=== PATIENT | female | born 1960 | race Caucasian/White ===

== ENCOUNTER 2017-03-17 08:13 | Inpatient (IN) ==
[2017-03-17] MEDS ORDERED: ALBUTEROL/IPRATROPIUM 3 ML NEB RESP TX STA (09:07)
[2017-03-17] MEDS ORDERED: methylPREDNISolone SOD SUC 125 MG/2 ML VIAL IV STA (09:07)
--- NOTE | 2017-03-17 09:10 | XRay Report ---
Portable chest March 17, 2017 Indication shortness of breath Comparison images dated January 05, 2016 Findings: Heart size is normal. Coarsened perihilar interstitial pattern predominantly involving the lower lobes. No effusions. No acute osseous abnormalities. Impression: Perihilar and lower lobe interstitial opacities. Differential considerations include underlying inflammatory/infectious process versus noncardiac interstitial edema. PROCEDURE INTERPRETED AT [facility] DEPARTMENT OF RADIOLOGY Final Report Signed by: Oliverio Almodovar
[2017-03-17] MEDS ORDERED: methylPREDNISolone SOD SUC 125 MG/2 ML VIAL ONE (09:16)
[2017-03-17 09:25] LABS: Basophils % 0.2 % (0.0-0.8); Eosinophils # 0.1 10*3/uL (0.0-0.87); Eosinophils % 0.4 % (0.00-10.9); Hematocrit 36.9 VOL% (35.7-47.0); Hemoglobin 12.7 GM/DL (12.0-16.0); Immature Granulocytes % 0.6 %; Immature Granulocytes Absolute 0.11 #; Lymphocytes # 1.3 10*3/uL (1.4-4.0); Lymphocytes % 7.5 % (21.3-54.2); Mean Corpuscular HGB Conc 34.4 GM/DL (32-36); Mean Corpuscular Hemoglobin 32 PG (27-34); Mean Corpuscular Volume 93.2 FL (87-102); Mean Platelet Volume 9.8 FL (9.6-12.0); Monocytes # 0.6 10*3/uL (0.11-0.8); Monocytes % 3.3 % (1.7-12.7); Neutrophils # 15.4 10*3/uL (1.4-7.4); Platelet Count 327 T/CUMM (130-400); Red Blood Count 3.96 MC/CUMM (3.8-5.5); White Blood Count 17.5 T/CUMM (4-12)
[2017-03-17 10:03] LABS: Blood Urea Nitrogen 15 MG/DL (7-18); Calcium 8.8 MG/DL (8.5-10.1); Glucose 105 MG/DL (74-106); Osmolality,Calculated 268.2 MOS/KG (273-304); Potassium 4.7 MMOL/L (3.5-5.1); Sodium 134 MMOL/L (136-145); Troponin I Only < 0.015 NG/ML (0.00-0.045)
--- NOTE | 2017-03-17 11:20 | Emergency Department Note ---
Jose Maria Lal Brooke, am scribing for, and in the presence of, Johnathan Crespo MD 08:44. Zak Lal Sunil, MD, personally performed the services described in this documentation, ascribed by Bianca Moise in my presence, and it is both accurate and complete 935 . Arrival - Arrival Chief Complaint: Upper Respiratory Stated Complaint: cough chest/throat pain,SOB ED Nursing Triage Note: C/o cough, runny nose, congestion, sore throat, and chest wall pain with coughing-onset two days ago. Denies fever. Mode of Arrival: Wheelchair Limitations: No Limitations Source: Patient, RN Notes Reviewed Time Seen by Provider: 03/17/17 08:35 - History of Present Illness HPI Narrative: Patient is a 56 year old female who presents to the ED with c/o shortness of breath and cough that started two days ago. Patient says she is having a hard time catching her breathe. She says her chest and throat are sore from coughing so much. Patient denies having any fever. She does not have home oxygen but says she "needs it." Patient has PMHx of HTN, afib, and COPD. Patient quit smoking two years ago. Her Primary Care Provider is Dr. Alison Rodgers. Onset (ago): day(s) (2) Date of Last Menstrual Period: menopause Allergies/Adverse Reactions: Allergies Allergy/AdvReac Type Severity Reaction Status Date / Time No Known Allergies Allergy Verified 07/09/15 16:06 Home Medications: Home Medications Medication Instructions Recorded Confirmed Type Fluoxetine HCl [Prozac] 40 mg PO QAM 12/22/15 03/17/17 History Hydrocodone/Acetaminophen 1 each PO BID 12/22/15 03/17/17 History [Hydrocodon-Acetaminophn 10-325] Multivit-Min/FA/Lycopen/Lutein 1 each PO DAILY 12/22/15 03/17/17 History [Centrum Silver Tablet] Bisoprolol [Zebeta] 5 mg PO BID #60 tablet 01/07/16 03/17/17 Rx Albuterol Inhaler [Proventil 2 puff INH Q6H PRN 03/17/17 03/17/17 History Inhaler] Albuterol Neb [Proventil Neb] 2.5 mg RESP TX Q4H PRN 03/17/17 03/17/17 History Amiodarone Tab [Cordarone Tab] 200 mg PO BEDTIME 03/17/17 03/17/17 History Azithromycin [Azithromycin Z Pack] 250 mg PO DIRECTED #6 tablet 03/17/17 Rx Lisinopril/Hydrochlorothiazide 1 each PO QAM 03/17/17 03/17/17 History [Lisinopril-Hctz 20-25 mg Tab] predniSONE TAB [PredniSONE] 10 mg PO DAILY #5 tablet 03/17/17 Rx Review of System - Review of System 12 point system: reviewed and no additional remarkable complaints except as stated - Review of System Constitutional: Absent: fever Head/Ears/Nose/Throat: Present: sore throat (sore from coughing) Respiratory: Present: cough, respiratory distress (short of breath) Cardiovascular: Present: chest pain (sore from coughing) Skin: Absent: rash Medical,Surgical,& Family Hx - Medical History Cardio: History of: Cardiac Dysrhythmia (AFIB), Hypertension Respiratory: History of: COPD - Social History Smoking Status: Former smoker Frequency of Alcohol Use: None Type of Drug Use: None Exam Vital Signs: Vital Signs Temperature 96.9 F L 03/17/17 08:19 Pulse Rate 85 03/17/17 09:35 Respiratory Rate 20 03/17/17 09:35 Blood Pressure 170/129 03/17/17 08:19 O2 Sat by Pulse Oximetry 96 03/17/17 09:35 - General General appearance: alert, in no apparent distress - Head Head exam: Present: atraumatic, normocephalic - Eye Eye exam: Present: normal appearance, PERRL, EOMI - ENT ENT exam: Present: normal exam - Neck Neck exam: Present: normal inspection - Chest Chest inspection: Present: normal inspection, symmetric chest wall rise - Respiratory Respiratory exam: Present: accessory muscle use, respiratory distress (mild to moderate- can speak full sentences. O2 Sat 85-86 w/o oxygen and 93-94 with oxygen), wheezes (diffuse) - Cardiovascular Cardiovascular exam: Present: regular rate, normal rhythm, normal heart sounds - Abdominal Exam Abdominal exam: Present: soft, normal bowel sounds. Absent: distention, tenderness - Extremities Exam Extremities exam: Present: normal inspection - Back Exam Back exam: Present: normal inspection - Neurological Exam Neurological exam: Present: alert, oriented X3 - Psychiatric Psychiatric exam: Present: normal affect, normal mood - Skin Skin exam: Present: warm, dry, intact, normal color Results - Labs CBC & BMP: 03/17/17 09:07 03/17/17 09:07 Lab Results: I have reviewed the patients labs Labs: Laboratory Tests 03/17/17 09:07 WBC 17.5 H RBC 3.96 Hgb 12.7 Hct 36.9 MCV 93.2 MCH 32 MCHC 34.4 RDW 13.0 Plt Count 327 MPV 9.8 Neut % (Auto) 88.0 H Lymph % (Auto) 7.5 L [place] % (Auto) 3.3 Eos % (Auto) 0.4 Baso % (Auto) 0.2 Neut # (Auto) 15.4 H Lymph # (Auto) 1.3 L [place] # (Auto) 0.6 Eos # (Auto) 0.1 Baso # (Auto) 0.0 Immature Gran % 0.6 Nucleated RBC % 0.0 Immature Gran # 0.11 Nucleated RBCs # 0.00 Immature Plt Fraction 0.0 Laboratory Tests 03/17/17 09:07 Sodium 134 L Potassium 4.7 Chloride 102 Carbon Dioxide 25 Anion Gap 11.7 BUN 15 Creatinine 1.20 H GFR Calculation 59 BUN/Creatinine Ratio 12.00 Glucose 105 Calculated Osmolality 268.2 L Calcium 8.8 Total Creatine Kinase 79 CK-MB (CK-2) < 1.0 Troponin I < 0.015 - Impressions This patient's oxygen saturation drops to 84% on room air. Has a history of COPD does not smoke anymore. She has a COPD exacerbation chest x-ray does not show pneumonia but possibly congestive heart failure. I have talked to the hospitalist who would admit this patient - Diagnostic Findings Procedure: Chest x-ray: report reviewed by me (Perihilar and lower lobe interstitial opacities. Differential considerations include underlying inflammatory/infectious process versus noncardiac interstitial edema.) Disposition Clinical Impression: COPD exacerbation Clinical Impression: (Ruled Out): Sinusitis Case discussed with: patient Disposition: Still a Patient Prescriptions: Azithromycin [Azithromycin Z Pack] 250 mg PO DIRECTED #6 tablet predniSONE TAB [PredniSONE] 10 mg PO DAILY #5 tablet New Prescriptions: Rx's Medication Instructions Recorded Azithromycin [Azithromycin Z Pack] 250 mg PO DIRECTED #6 tablet 03/17/17 predniSONE TAB [PredniSONE] 10 mg PO DAILY #5 tablet 03/17/17
[2017-03-17] MEDS ORDERED: ONDANSETRON 4 MG/2 ML VIAL IV PRN (12:30)
[2017-03-17] MEDS ORDERED: ACETAMINOPHEN 325 MG TABLET PO PRN (12:30)
[2017-03-17] MEDS ORDERED: ALBUTEROL 2.5 MG/3 ML NEB RESP TX PRN (12:53)
--- NOTE | 2017-03-17 12:54 | Hospitalist History & Physical ---
Assessment and Plan (1) COPD exacerbation Status: Acute Assessment and plan: Admit to med surg. IVF. IV antibiotics. IV steroids. Breathing treatments scheduled and prn. Supplemental O2. Current Visit: No History of Present Illness Chief complaint: shortness of breath History of present illness: Ms. Baker is a 56 year old white female with a history of htn, afib, pneumonia, and COPD that presented to the ED with complaints of shortness of breath and cough that started 2 days ago. Pt. states that she is having difficulty breathing. She also reports chest pain associated with the cough. The cough is nonproductive. She denies any fever, chills, and night sweats. She also denies nausea, vomiting, and diarrhea. Pt. is a former smoker who quit 2 years ago. CXR in ED showed 'perihilar and lower lobe interstitial opacities'. Pt's case has been discussed with Dr. Rocha and the patient will be accepted on our service. Pt. will be admitted for further evaluation and treatment. Home Medications Medication Instructions Recorded Confirmed Type Fluoxetine HCl [Prozac] 40 mg PO QAM 12/22/15 03/17/17 History Hydrocodone/Acetaminophen 1 each PO BID 12/22/15 03/17/17 History [Hydrocodon-Acetaminophn 10-325] Multivit-Min/FA/Lycopen/Lutein 1 each PO DAILY 12/22/15 03/17/17 History [Centrum Silver Tablet] Bisoprolol [Zebeta] 5 mg PO BID #60 tablet 01/07/16 03/17/17 Rx Albuterol Inhaler [Proventil 2 puff INH Q6H PRN 03/17/17 03/17/17 History Inhaler] Albuterol Neb [Proventil Neb] 2.5 mg RESP TX Q4H PRN 03/17/17 03/17/17 History Amiodarone Tab [Cordarone Tab] 200 mg PO BEDTIME 03/17/17 03/17/17 History Azithromycin [Azithromycin Z Pack] 250 mg PO DIRECTED #6 tablet 03/17/17 Rx Lisinopril/Hydrochlorothiazide 1 each PO QAM 03/17/17 03/17/17 History [Lisinopril-Hctz 20-25 mg Tab] predniSONE TAB [PredniSONE] 10 mg PO DAILY #5 tablet 03/17/17 Rx Allergies Allergy/AdvReac Type Severity Reaction Status Date / Time No Known Allergies Allergy Verified 07/09/15 16:06 Medical,Surgical,& Family Hx - Medical History Cardio: History of: Cardiac Dysrhythmia (AFIB), Hypertension Respiratory: History of: COPD - Family History Family History: Reports;: Family Heart Disease - Social History Smoking Status: Former smoker Frequency of Alcohol Use: None Type of Drug Use: None Marital Status: Lives With:: Significant Other Functional capacity: uses cane/walker 12 point system: reviewed and no additional remarkable complaints except as stated - Constitutional Constitutional: Absent: chills, fever(s), night sweats - EENT Eyes: Absent: blurry vision Ears: Absent: decreased hearing Nose, mouth and throat: Absent: headache(s) - Cardiovascular Cardiovascular: Present: chest pain with activity (expiratory chest wall pain.) , dyspnea on exertion. Absent: edema - Respiratory Respiratory: Present: cough, dyspnea - Gastrointestinal Gastrointestinal: Absent: abdominal pain, nausea, vomiting - Genitourinary Genitourinary: Absent: difficulty urinating - Neurological Neurological: Absent: confusion, dizziness - Endocrine Endocrine: Present: polyuria Exam - Constitutional Vitals: Period Temp Pulse Resp BP Sys/Urena Pulse Ox Last 24 Hr 96.9 F-96.9 F 85-94 20-26 92-170/56-129 87-96 General appearance: mild distress - Head Head exam: Present: normal inspection, normocephalic - Eye Eye exam: Present: EOMI Pupils: Present: PARVIN - Neck Neck exam: Present: normal inspection - Respiratory Respiratory exam: Present: other (coarse). Absent: wheezes - Cardiovascular Cardiovascular exam: Present: regular rate and rhythm - GI/Abdominal GI/Abdominal exam: Present: normal bowel sounds, soft. Absent: tenderness - Extremities Exam Extremities exam: Present: normal capillary refill, full ROM. Absent: edema - Neurological Exam Neurological exam: Present: alert, oriented X3 - Psychiatric Psychiatric exam: Present: normal affect, normal mood - Skin Skin exam: Present: normal color, warm, dry Results - Labs CBC & BMP: 03/17/17 09:07 03/17/17 09:07 Lab Results: I have reviewed the past 24 hour labs
--- NOTE | 2017-03-17 13:21 | EKG Report ---
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
[2017-03-17] MEDS: SODIUM CHLORIDE 0.9% 1,000 ML IV SCH (13:27)
[2017-03-17] MEDS: ALBUTEROL/IPRATROPIUM 3 ML NEB RESP TX SCH ×3 (14:26→22:47)
[2017-03-17] MEDS: cefTRIAXone 2,000 MG in SODIUM CHLORIDE 0.9% 100 ML IV SCH (16:13)
[2017-03-17] MEDS: FUROSEMIDE 40 MG/4 ML VIAL IV SCH (16:13)
[2017-03-17] MEDS: methylPREDNISolone SOD SUC 40 MG/1 ML VIAL IV SCH (18:06)
[2017-03-17 19:18] LABS: Apearance,Urine Slightly Hazy (Clear); Bacteria,Urine Few /HPF (Few); Bilirubin,Urine Negative (Negative); Blood, Urine Negative (Negative); Glucose,Urine (UA) Negative (Negative); Ketones,Urine Negative (Negative); Nitrite,Urine Negative (Negative); Protein,Urine Negative; Squamous Epithelial Cell,Urine Occasional /HPF (0-10); Urine Color Yellow (Yellow); Urine Specific Gravity 1.009 (1.001-1.035); Urine Urobilinogen < 2.0 EU/DL (0.2-1.0)
[2017-03-17] MEDS: BISOPROLOL 5 MG TABLET PO SCH (21:27)
[2017-03-17] MEDS: ENOXAPARIN 40 MG/0.4 ML SYRINGE SUBCUT SCH (21:27)
[2017-03-17] MEDS: AMIODARONE 200 MG TABLET PO SCH (21:27)
[2017-03-17] MEDS: FLUTICASONE/SALMETEROL 250-50 DISKUS 14 DOSE INH SCH (21:27)
[2017-03-17] MEDS: DOXYCYCLINE HYCLATE 100 MG CAPSULE PO SCH (21:27)
[2017-03-18] MEDS: ALBUTEROL/IPRATROPIUM 3 ML NEB RESP TX SCH ×5 (02:33→19:31)
[2017-03-18] MEDS: methylPREDNISolone SOD SUC 40 MG/1 ML VIAL IV SCH ×3 (02:50→17:54)
[2017-03-18] MEDS: SODIUM CHLORIDE 0.9% 1,000 ML IV SCH ×2 (03:00→17:20)
[2017-03-18 03:33] LABS: Basophils % 0.1 % (0.0-0.8); Hematocrit 33.3 VOL% (35.7-47.0); Hemoglobin 11.3 GM/DL (12.0-16.0); Immature Granulocytes % 1.8 %; Immature Granulocytes Absolute 0.27 #; Lymphocytes # 0.5 10*3/uL (1.4-4.0); Lymphocytes % 3.2 % (21.3-54.2); Mean Corpuscular HGB Conc 33.9 GM/DL (32-36); Mean Corpuscular Hemoglobin 32 PG (27-34); Mean Corpuscular Volume 94.1 FL (87-102); Mean Platelet Volume 10.2 FL (9.6-12.0); Monocytes # 0.5 10*3/uL (0.11-0.8); Monocytes % 3.6 % (1.7-12.7); Neutrophils # 13.8 10*3/uL (1.4-7.4); Neutrophils % 91.3 % (38.7-73.9); Platelet Count 330 T/CUMM (130-400); Red Blood Count 3.54 MC/CUMM (3.8-5.5); Red Cell Distribution Width 13.2 % (9.3-17.3); White Blood Count 15.1 T/CUMM (4-12)
[2017-03-18 04:24] LABS: Calcium 8.6 MG/DL (8.5-10.1); Potassium 4.2 MMOL/L (3.5-5.1); Risk Ratio 4.1; Thyroid Stimulating Hormone 0.212 uIU/ml (0.358-3.74); VLDL CHOLESTEROL 16.6 MG/DL
[2017-03-18 05:16] LABS: Band Neutrophils 1 % (0-10); Eosinophils 1 % (0-10); Lymphocytes 2 % (20-55); Platelet Estimate Normal; Segmented Neutrophils 92 % (50-85); Total Cells Counted 100
[2017-03-18] MEDS: FUROSEMIDE 40 MG/4 ML VIAL IV SCH (09:51)
[2017-03-18] MEDS: FLUTICASONE/SALMETEROL 250-50 DISKUS 14 DOSE INH SCH ×2 (09:52→21:35)
[2017-03-18] MEDS: BISOPROLOL 5 MG TABLET PO SCH ×2 (09:53→21:35)
[2017-03-18] MEDS: FLUoxetine 20 MG CAPSULE PO SCH (09:53)
[2017-03-18] MEDS: CHOLECALCIFEROL 1,000 UNIT TABLET PO SCH (09:53)
[2017-03-18] MEDS: PANTOPRAZOLE 40 MG TABLET PO SCH (09:53)
[2017-03-18] MEDS: LISINOPRIL/HCTZ 20-25 MG TABLET PO SCH (09:53)
[2017-03-18] MEDS: DOXYCYCLINE HYCLATE 100 MG CAPSULE PO SCH ×2 (12:36→21:35)
[2017-03-18] MEDS: cefTRIAXone 2,000 MG in SODIUM CHLORIDE 0.9% 100 ML IV SCH (14:20)
[2017-03-18] MEDS ORDERED: CLOTRIMAZOLE 1% CREAM 15 GM TUBE TOP SCH (14:30)
--- NOTE | 2017-03-18 15:59 | Hospitalist Progress Note ---
Hospitalist: Subjective Interval history: 56 year old white female with a history of htn, afib, pneumonia, and COPD that presented to the ED with complaints of shortness of breath and cough that started 2 days ago. She was found to have pneumonia and CHF exacerbation, getting treatment for those, feeling better than yesterday. Exam - Constitutional Vitals: Period Temp Pulse Resp BP Sys/Urena Pulse Ox Last 24 Hr 97.0 F-98 F 75-92 16-20 111-118/53-59 91-99 Exam: General: No Acute Distress HEENT: Normocephalic, atraumatic, Extra ocular movements intact Neck: Few crackles bilaterally Chest: Clear to auscultation B/L CV: S1 + S2 audible without murmur, gallop or rub Abd: soft, NT, Non-distended, BS + Ext: No edema Skin: No purpura, bruising or rash Rheumatologic: No Joint deformities Neurologic: Strength 5/5 all extremities, no gross sensory deficits Results - Labs CBC & BMP: 03/18/17 02:45 03/18/17 02:45 - Impressions Assessment and Plan: Acute on chronic COPD exacerbation Status: Acute Assessment and plan: Continue IV steroids antibiotics and bronchodilators Current Visit: Yes Bacterial pneumonia Status: Acute Assessment and plan: Continue IV antibiotics. Repeat chest x-ray. Current Visit: Yes Acute on chronic diastolic congestive heart failure Status: Acute Assessment and plan: Continue IV Lasix Current Visit: Yes Paroxysmal atrial fibrillation Status: Chronic Assessment and plan: Continue home bisoprolol and amiodarone Current Visit: No
--- NOTE | 2017-03-18 17:09 | XRay Report ---
2 view chest March 18, 2017 extending 17 hours Indication: Shortness of breath Comparison: Previous day and 29 hours Findings: Cardiomediastinal contours are stable. No change in the perihilar interstitial and hazy alveolar opacities when compared with prior study. No acute osseous abnormalities. Visualized upper abdomen demonstrates no acute pathology. Impression: Stable perihilar interstitial opacities, likely inflammatory in etiology. PROCEDURE INTERPRETED AT [facility] DEPARTMENT OF RADIOLOGY Final Report Signed by: Oliverio Almodovar
[2017-03-18] MEDS: ENOXAPARIN 40 MG/0.4 ML SYRINGE SUBCUT SCH (21:34)
[2017-03-18] MEDS: AMIODARONE 200 MG TABLET PO SCH (21:35)
[2017-03-18] MEDS: MICONAZOLE 2% VAG CREAM 45 GM TUBE VAG SCH (21:35)
[2017-03-19] MEDS: ALBUTEROL/IPRATROPIUM 3 ML NEB RESP TX SCH ×6 (00:08→19:37)
[2017-03-19] MEDS: methylPREDNISolone SOD SUC 40 MG/1 ML VIAL IV SCH ×3 (01:21→18:01)
[2017-03-19 04:32] LABS: Basophils % 0.1 % (0.0-0.8); Hemoglobin 10.9 GM/DL (12.0-16.0); Immature Granulocytes Absolute 0.39 #; Lymphocytes # 0.6 10*3/uL (1.4-4.0); Lymphocytes % 3.1 % (21.3-54.2); Mean Corpuscular HGB Conc 34.1 GM/DL (32-36); Mean Corpuscular Hemoglobin 32 PG (27-34); Mean Corpuscular Volume 94.4 FL (87-102); Mean Platelet Volume 10.4 FL (9.6-12.0); Monocytes # 0.6 10*3/uL (0.11-0.8); Monocytes % 2.9 % (1.7-12.7); Neutrophils # 17.6 10*3/uL (1.4-7.4); Neutrophils % 91.9 % (38.7-73.9); Platelet Count 371 T/CUMM (130-400); Red Blood Count 3.39 MC/CUMM (3.8-5.5); Red Cell Distribution Width 13.3 % (9.3-17.3); White Blood Count 19.2 T/CUMM (4-12)
[2017-03-19 04:58] LABS: Calcium 8.5 MG/DL (8.5-10.1); Osmolality,Calculated 289.7 MOS/KG (273-304)
[2017-03-19 05:15] LABS: Band Neutrophils 1 % (0-10); Lymphocytes 4 % (20-55); Segmented Neutrophils 94 % (50-85); Total Cells Counted 100
[2017-03-19 05:16] LABS: Hypochromasia Slight; Microcytosis Slight
[2017-03-19] MEDS: SODIUM CHLORIDE 0.9% 1,000 ML IV SCH ×2 (06:23→19:43)
[2017-03-19] MEDS: LISINOPRIL/HCTZ 20-25 MG TABLET PO SCH (08:27)
[2017-03-19] MEDS: BISOPROLOL 5 MG TABLET PO SCH ×2 (08:27→21:23)
[2017-03-19] MEDS: DOXYCYCLINE HYCLATE 100 MG CAPSULE PO SCH ×2 (08:27→21:23)
[2017-03-19] MEDS: FLUoxetine 20 MG CAPSULE PO SCH (08:27)
[2017-03-19] MEDS: CHOLECALCIFEROL 1,000 UNIT TABLET PO SCH (08:27)
[2017-03-19] MEDS: PANTOPRAZOLE 40 MG TABLET PO SCH (08:28)
[2017-03-19] MEDS: FLUTICASONE/SALMETEROL 250-50 DISKUS 14 DOSE INH SCH ×2 (08:28→21:24)
[2017-03-19] MEDS: FUROSEMIDE 40 MG/4 ML VIAL IV SCH (08:29)
--- NOTE | 2017-03-19 11:19 | Hospitalist Progress Note ---
Assessment and Plan (1) CAP (community acquired pneumonia) Status: Acute Assessment and plan: The patient is improving slowly. We will continue with IV antibiotics for her pneumonia. The patient will be ready for discharge home likely on Sunday. Current Visit: No (2) COPD (chronic obstructive pulmonary disease) Status: Chronic Current Visit: No Qualifiers: COPD type: emphysema Emphysema type: centrilobular Qualified Code(s): J43.2 - Centrilobular emphysema Hospitalist: Subjective Interval history: 56 year old white female with a history of htn, afib, pneumonia, and COPD that presented to the ED with complaints of shortness of breath and cough that started 2 days prior to admission. The patient's shortness of breath is improving any she has less productive sputum. The patient is cooperative with respiratory therapies and has less wheezing than she did before admission. The patient be ready for discharge home but needs additional IV antibiotics to clear infection from the upper airways. The patient denies angina or abdominal pain. Exam - Constitutional Vitals: Period Temp Pulse Resp BP Sys/Urena Pulse Ox Last 24 Hr 96.7 F-98.4 F 75-90 16-22 105-130/54-71 83-99 General appearance: mild distress - Head Head exam: Present: normocephalic (The patient is warm to the touch and mildly diaphoretic) - Respiratory Respiratory exam: Present: prolonged expiratory phase Results - Labs CBC & BMP: 03/19/17 04:07 03/19/17 04:07 Lab Results: I have reviewed the past 24 hour labs
[2017-03-19] MEDS: cefTRIAXone 2,000 MG in SODIUM CHLORIDE 0.9% 100 ML IV SCH (17:02)
[2017-03-19] MEDS: AMIODARONE 200 MG TABLET PO SCH (21:23)
[2017-03-19] MEDS: ENOXAPARIN 40 MG/0.4 ML SYRINGE SUBCUT SCH (21:23)
[2017-03-19] MEDS: MICONAZOLE 2% VAG CREAM 45 GM TUBE VAG SCH (21:24)
[2017-03-20] MEDS: methylPREDNISolone SOD SUC 40 MG/1 ML VIAL IV SCH (01:46)
[2017-03-20] MEDS: ALBUTEROL/IPRATROPIUM 3 ML NEB RESP TX SCH ×7 (01:56→22:48)
[2017-03-20] MEDS ORDERED: ZALEPLON 5 MG CAPSULE PO PRN (08:06)
[2017-03-20] MEDS ORDERED: ALPRAZolam 0.25 MG TABLET PO PRN (08:07)
--- NOTE | 2017-03-20 08:13 | Hospitalist Progress Note ---
Assessment and Plan (1) AMANDEEP (acute kidney injury) Status: Resolved Assessment and plan: Her BUN and creatinine are 30 and 1.3 respectively. Current Visit: No (2) Pneumonia Status: Acute Assessment and plan: Patient is significantly improved. She continues receiving intravenous ceftriaxone and oral doxycycline. I will continue albuterol ipratropium nebulizer therapy, discontinue intravenous methylprednisolone, and start prednisone 10 mg p.o. daily. If stable, she will be discharged tomorrow. Current Visit: No Qualifiers: Pneumonia type: due to unspecified organism (3) Heart failure, diastolic, acute on chronic Status: Acute Assessment and plan: She continues to receive furosemide 40 mg intravenous daily. There is no evidence at the present time of acute congestive heart failure. Current Visit: No Hospitalist: Subjective Interval history: Patient states that she feels much better today. She complains of anxiety and insomnia which she attributes to the corticosteroids and albuterol. I discussed with the patient that, if she feels well enough, we will discharge her tomorrow on oral antibiotics. Exam - Constitutional Vitals: Period Temp Pulse Resp BP Sys/Urena Pulse Ox Last 24 Hr 96.7 F-97.8 F 79-89 16-20 110-152/65-88 89-99 General appearance: no acute distress - Head Head exam: Present: normal inspection - Neck Neck exam: Present: normal inspection - Respiratory Respiratory exam: Present: clear to auscultation bilaterally - Cardiovascular Cardiovascular exam: Present: regular rate and rhythm - GI/Abdominal GI/Abdominal exam: Present: normal bowel sounds, soft, other (Nontender with no palpable masses or hepatosplenomegaly.) - Extremities Exam Extremities exam: Present: normal inspection - Neurological Exam Neurological exam: Present: alert, oriented X3 - Skin Skin exam: Present: normal color, warm, intact Results - Labs CBC & BMP: 03/19/17 04:07 03/19/17 04:07 Specialty Discharge - Follow Up or Referrals
[2017-03-20] MEDS: predniSONE 10 MG TABLET PO SCH (09:29)
[2017-03-20] MEDS: BISOPROLOL 5 MG TABLET PO SCH ×2 (09:30→21:54)
[2017-03-20] MEDS: DOXYCYCLINE HYCLATE 100 MG CAPSULE PO SCH ×2 (09:30→21:54)
[2017-03-20] MEDS: CHOLECALCIFEROL 1,000 UNIT TABLET PO SCH (09:30)
[2017-03-20] MEDS: PANTOPRAZOLE 40 MG TABLET PO SCH (09:30)
[2017-03-20] MEDS: FLUoxetine 20 MG CAPSULE PO SCH (09:30)
[2017-03-20] MEDS: FUROSEMIDE 40 MG/4 ML VIAL IV SCH (09:31)
[2017-03-20] MEDS: FLUTICASONE/SALMETEROL 250-50 DISKUS 14 DOSE INH SCH ×2 (09:31→21:54)
[2017-03-20] MEDS: LISINOPRIL/HCTZ 20-25 MG TABLET PO SCH (09:31)
[2017-03-20] MEDS: SODIUM CHLORIDE 0.9% 1,000 ML IV SCH ×2 (11:08→21:56)
[2017-03-20] MEDS: AMIODARONE 200 MG TABLET PO SCH (21:54)
[2017-03-20] MEDS: ENOXAPARIN 40 MG/0.4 ML SYRINGE SUBCUT SCH (21:54)
[2017-03-20] MEDS: cefTRIAXone 2,000 MG in SODIUM CHLORIDE 0.9% 100 ML IV SCH (21:55)
[2017-03-20] MEDS: MICONAZOLE 2% VAG CREAM 45 GM TUBE VAG SCH (21:55)
[2017-03-21] MEDS: ALBUTEROL/IPRATROPIUM 3 ML NEB RESP TX SCH ×3 (02:55→11:06)
[2017-03-21 03:37] LABS: Basophils # 0.1 10*3/uL (0.0-0.2); Basophils % 0.4 % (0.0-0.8); Eosinophils % 0.2 % (0.00-10.9); Hematocrit 34.5 VOL% (35.7-47.0); Hemoglobin 11.7 GM/DL (12.0-16.0); Immature Granulocytes % 4.1 %; Lymphocytes # 2.9 10*3/uL (1.4-4.0); Lymphocytes % 23.8 % (21.3-54.2); Mean Corpuscular HGB Conc 33.9 GM/DL (32-36); Mean Corpuscular Hemoglobin 32 PG (27-34); Mean Corpuscular Volume 95.6 FL (87-102); Mean Platelet Volume 10.1 FL (9.6-12.0); Monocytes # 0.8 10*3/uL (0.11-0.8); Monocytes % 6.7 % (1.7-12.7); NRBC # 0.02 10*3/uL; Neutrophils # 7.9 10*3/uL (1.4-7.4); Neutrophils % 64.8 % (38.7-73.9); Platelet Count 405 T/CUMM (130-400); Red Blood Count 3.61 MC/CUMM (3.8-5.5); Red Cell Distribution Width 13.5 % (9.3-17.3); White Blood Count 12.1 T/CUMM (4-12)
[2017-03-21 04:03] LABS: Calcium 8.4 MG/DL (8.5-10.1); Osmolality,Calculated 287.3 MOS/KG (273-304); Potassium 4.2 MMOL/L (3.5-5.1)
[2017-03-21] MEDS: LISINOPRIL/HCTZ 20-25 MG TABLET PO SCH (08:46)
[2017-03-21] MEDS: DOXYCYCLINE HYCLATE 100 MG CAPSULE PO SCH (08:46)
[2017-03-21] MEDS: BISOPROLOL 5 MG TABLET PO SCH (08:46)
[2017-03-21] MEDS: CHOLECALCIFEROL 1,000 UNIT TABLET PO SCH (08:46)
[2017-03-21] MEDS: FLUTICASONE/SALMETEROL 250-50 DISKUS 14 DOSE INH SCH (08:46)
[2017-03-21] MEDS: PANTOPRAZOLE 40 MG TABLET PO SCH (08:46)
[2017-03-21] MEDS: predniSONE 10 MG TABLET PO SCH (08:47)
[2017-03-21] MEDS: FUROSEMIDE 40 MG/4 ML VIAL IV SCH (08:47)
[2017-03-21] MEDS: FLUoxetine 20 MG CAPSULE PO SCH (08:47)
--- NOTE | 2017-03-21 11:04 | Discharge Summary ---
Hospital Course - Hospital Course Hospital Course: Patient was admitted to the hospital with complaints of coughing and fever. Chest xray demonstrated bilaterl lower lobe pneumonia. She was treated with IV ceftriaxone, Prednisone, and Duonebs. She had persistent renal insufficiency with discharge BUN 28 and creatinine 1.1. At the time of discharge she was stable with no complaints. Diagnosis - Discharge Diagnosis (1) AMANDEEP (acute kidney injury) Status: Chronic (2) Pneumonia Status: Acute (3) Heart failure, diastolic, acute on chronic Status: Acute Specialty Discharge - Follow Up or Referrals Discharge Plan - Discharge Data Disposition: Disch To Home/Self Care Condition at Discharge: Stable Discharge Diet: advance to your usual diet Activity: resume usual activities as tolerated - Discharge Medications New Cholecalciferol [Vitamin D3] 2,000 unit PO DAILY #30 tablet Doxycycline Hyclate Cap [Vibramycin Cap] 100 mg PO BID #10 capsule Miconazole 2% Vag Cream [Monistat 7 Vag Cream] 1 applicator VAG BEDTIME #7 Continue Fluoxetine HCl [Prozac] 40 mg PO QAM Hydrocodone/Acetaminophen [Hydrocodon-Acetaminophn 10-325] 1 each PO BID Multivit-Min/FA/Lycopen/Lutein [Centrum Silver Tablet] 1 each PO DAILY Albuterol Inhaler [Proventil Inhaler] 2 puff INH Q6H PRN PRN Reason: Shortness Of Breath/Wheezing Amiodarone Tab [Cordarone Tab] 200 mg PO BEDTIME Lisinopril/Hydrochlorothiazide [Lisinopril-Hctz 20-25 mg Tab] 1 each PO QAM Albuterol Neb [Proventil Neb] 2.5 mg RESP TX Q4H PRN PRN Reason: Shortness Of Breath/Wheezing - Follow Up or Referral - Forms/Instructions Instructions: Chronic Obstructive Pulmonary Disease (GEN), COPD Exacerbation, [employer] (GEN) Exam - Constitutional Vitals: Period Temp Pulse Resp BP Sys/Urena Pulse Ox Last 24 Hr 96.3 F-98.3 F 70-86 12-24 123-143/59-86 91-99 Discharge Results Procedures and tests throughout hospitalization: Pending Orders 03/17/17 09:07 NT-Pro BNP, S Stat 03/17/17 13:06 Blood Culture Stat Labs on day of discharge: Labs from last 24 hours 03/21/17 03/21/17 03:01 03:01 WBC 12.1 H D RBC 3.61 L Hgb 11.7 L Hct 34.5 L MCV 95.6 MCH 32 MCHC 33.9 RDW 13.5 Plt Count 405 H MPV 10.1 Neut % (Auto) 64.8 Lymph % (Auto) 23.8 [place] % (Auto) 6.7 Eos % (Auto) 0.2 Baso % (Auto) 0.4 Neut # (Auto) 7.9 H Lymph # (Auto) 2.9 [place] # (Auto) 0.8 Eos # (Auto) 0.0 Baso # (Auto) 0.1 Immature Gran % 4.1 Nucleated RBC % 0.2 Immature Gran # 0.50 Nucleated RBCs # 0.02 Immature Plt Fraction 0.0 Sodium 141 Potassium 4.2 Chloride 106 Carbon Dioxide 27 Anion Gap 12.2 BUN 28 H Creatinine 1.10 H GFR Calculation 65 BUN/Creatinine Ratio 25.00 H Glucose 121 H Calculated Osmolality 287.3 Calcium 8.4 L Preliminary micro results at discharge 03/17/17 13:06 Blood Culture - Preliminary Blood No growth at 3 days 03/17/17 13:06 Blood Culture - Preliminary Blood No growth at 3 days DS: Provider Date of admission: 03/17/17 11:58 Primary care physician: YRIS Haynes Attending physician on admission: Manuel Rocha MD Consults: 03/17/17 12:53 Consult to Pulmonary Rehabilitation [CONS] Routine Reason for Pulmonary Rehabilitation: COPD 03/17/17 15:31 Consult to Case Mgmt/Social Srvs [CONS] Routine Reason for Case Mgmt/Social Srvs: Equipment Consult Comment: Patient requesting assistance in obtaining a nebulizer for home use Discharging clinician: Jeremy Hernandez
[2017-03-21 12:01] VITALS: BP 113/62
[2017-03-21] MEDS: SODIUM CHLORIDE 0.9% 1,000 ML IV SCH (14:43)
== END 2017-03-21 15:46 | disposition home or self-care (01) | DRG 291 ==
LOC: N.ED 08:13 → SUATTDRO 11:58 → N.EDINP 11:58 → N.2E 12:53
PROVIDERS: ADMIT Hospitalist

== ENCOUNTER 2017-10-27 20:10 | Inpatient (IN) ==
[2017-10-27 21:20] LABS: Basophils % 0.3 % (0.0-0.8); Eosinophils # 0.1 10*3/uL (0.0-0.87); Eosinophils % 0.6 % (0.00-10.9); Hematocrit 35.4 VOL% (35.7-47.0); Hemoglobin 11.5 GM/DL (12.0-16.0); Immature Granulocytes % 0.6 %; Immature Granulocytes Absolute 0.09 #; Lymphocytes # 1.4 10*3/uL (1.4-4.0); Lymphocytes % 9.2 % (21.3-54.2); Mean Corpuscular HGB Conc 32.5 GM/DL (32-36); Mean Corpuscular Hemoglobin 31 PG (27-34); Mean Corpuscular Volume 96.2 FL (87-102); Mean Platelet Volume 10.2 FL (9.6-12.0); Monocytes # 0.9 10*3/uL (0.11-0.8); Monocytes % 5.9 % (1.7-12.7); Neutrophils # 12.6 10*3/uL (1.4-7.4); Neutrophils % 83.4 % (38.7-73.9); Platelet Count 315 T/CUMM (130-400); Red Blood Count 3.68 MC/CUMM (3.8-5.5); Red Cell Distribution Width 15.9 % (9.3-17.3)
[2017-10-27 21:34] LABS: Apearance,Urine Slightly Hazy (Clear); Bacteria,Urine Many /HPF (Few); Bilirubin,Urine Negative (Negative); Blood, Urine Moderate mg/dL (Negative); Glucose,Urine (UA) Negative (Negative); Ketones,Urine Negative (Negative); Mucus,Urine Occasional /LPF (Occasional); Nitrite,Urine Negative (Negative); Protein,Urine Negative; RBC,Urine 1 /HPF (0-4); Squamous Epithelial Cell,Urine Occasional /HPF (0-10); Urine Color Yellow (Yellow); Urine Urobilinogen < 2.0 EU/DL (0.2-1.0); WBC,Urine 18 /HPF (0-6)
[2017-10-27 21:41] LABS: Alanine Aminotransferase 17 U/L (13-56); Albumin 3.5 G/DL (3.4-5.0); Alkaline Phosphatase 97 U/L (45-117); Aspartate Amino Transferase 54 U/L (0-37); Bilirubin,Total < 0.39 MG/DL (0.2-1.0); Blood Urea Nitrogen 32 MG/DL (7-18); Calcium 8.7 MG/DL (8.5-10.1); Glucose 87 MG/DL (74-106); Osmolality,Calculated 284.4 MOS/KG (273-304); Potassium 3.7 MMOL/L (3.5-5.1); Sodium 140 MMOL/L (136-145); Total Protein 7.1 G/DL (6.4-8.3)
[2017-10-27 21:50] LABS: Barbiturates Screen,Urine Negative (Negative); Benzodiazepines Screen,Urine Negative (Negative); Cannabinoid Screen,Urine Negative (Negative); Opiate Screen,Urine Positive (Negative); Phencyclidine Screen,Urine Negative (Negative)
[2017-10-27 21:53] LABS: Ammonia < 10 UMOL/L (11-32)
[2017-10-28] MEDS ORDERED: SODIUM CHLORIDE 0.9% 1,000 ML IV STA (00:40)
[2017-10-28] MEDS ORDERED: AMPICILLIN/SULBACTAM 3,000 MG in SODIUM CHLORIDE 0.9% 100 ML IV STA (00:40)
[2017-10-28 00:45] LABS: ABG Base Excess -4.9 MMOL/L (-2.5-2.5); ABG HCO3 20.3 MMOL/L (20-26); ABG Oxygen Saturation 94.2 % (95-100); ABG PCO2 30.7 MM HG (35-48); ABG PO2 70.9 MM HG (80-95); ABG TCO2 17.1 MMOL/L (23-27); Allen Test Positive
[2017-10-28] MEDS ORDERED: AMPICILLIN/SULBACTAM 3,000 MG VIAL ONE (00:50)
[2017-10-28] MEDS ORDERED: SODIUM CHLORIDE 0.9% 100 ML IV ONE (00:51)
[2017-10-28] MEDS ORDERED: ALBUTEROL/IPRATROPIUM 3 ML NEB RESP TX STA (00:58)
[2017-10-28] MEDS ORDERED: ALBUTEROL 2.5 MG/3 ML NEB RESP TX PRN (02:16)
[2017-10-28] MEDS ORDERED: ACETAMINOPHEN 325 MG TABLET PO PRN (02:21)
[2017-10-28] MEDS ORDERED: ONDANSETRON 4 MG/2 ML VIAL IV PRN (02:21)
[2017-10-28] MEDS ORDERED: LEVOFLOXACIN INJ 750 MG in PREMIX 1 EACH IV SCH (04:00)
[2017-10-28] MEDS: SODIUM CHLORIDE 0.9% 1,000 ML IV SCH ×2 (04:20→17:10)
[2017-10-28] MEDS: methylPREDNISolone SOD SUC 40 MG/1 ML VIAL IV SCH ×3 (04:20→18:24)
[2017-10-28 04:51] LABS: Apearance,Urine Slightly Hazy (Clear); Bacteria,Urine Occasional /HPF (Few); Bilirubin,Urine Negative (Negative); Blood, Urine Negative (Negative); Glucose,Urine (UA) Negative (Negative); Ketones,Urine Negative (Negative); Mucus,Urine Occasional /LPF (Occasional); Nitrite,Urine Negative (Negative); Protein,Urine Negative; RBC,Urine 1 /HPF (0-4); Squamous Epithelial Cell,Urine Occasional /HPF (0-10); Urine Color Straw (Yellow); Urine Specific Gravity 1.009 (1.001-1.035); Urine Urobilinogen < 2.0 EU/DL (0.2-1.0); WBC,Urine 15 /HPF (0-6)
[2017-10-28 05:48] LABS: Basophils % 0.3 % (0.0-0.8); Eosinophils # 0.1 10*3/uL (0.0-0.87); Eosinophils % 0.7 % (0.00-10.9); Hematocrit 33.8 VOL% (35.7-47.0); Hemoglobin 10.9 GM/DL (12.0-16.0); Immature Granulocytes % 0.6 %; Immature Granulocytes Absolute 0.08 #; Lymphocytes % 15.3 % (21.3-54.2); Mean Corpuscular HGB Conc 32.2 GM/DL (32-36); Mean Corpuscular Hemoglobin 31 PG (27-34); Mean Corpuscular Volume 96.8 FL (87-102); Mean Platelet Volume 10.6 FL (9.6-12.0); Monocytes # 1.1 10*3/uL (0.11-0.8); Monocytes % 8.8 % (1.7-12.7); Neutrophils # 9.5 10*3/uL (1.4-7.4); Neutrophils % 74.3 % (38.7-73.9); Platelet Count 281 T/CUMM (130-400); Red Blood Count 3.49 MC/CUMM (3.8-5.5); Red Cell Distribution Width 15.9 % (9.3-17.3); White Blood Count 12.8 T/CUMM (4-12)
[2017-10-28 06:16] LABS: Calcium 7.9 MG/DL (8.5-10.1); Potassium 3.8 MMOL/L (3.5-5.1)
[2017-10-28] MEDS: AMOXICILLIN 500 MG CAPSULE PO SCH ×3 (06:22→21:18)
[2017-10-28] MEDS: ALBUTEROL/IPRATROPIUM 3 ML NEB RESP TX SCH ×3 (07:13→21:44)
[2017-10-28] MEDS: ENOXAPARIN 40 MG/0.4 ML SYRINGE SUBCUT SCH (09:45)
[2017-10-28] MEDS: CHOLECALCIFEROL 1,000 UNIT TABLET PO SCH (09:46)
[2017-10-28] MEDS: MULTIVITAMIN (CENTRUM) TABLET PO SCH (09:46)
[2017-10-28] MEDS: LISINOPRIL/HCTZ 20-25 MG TABLET PO SCH (09:46)
[2017-10-28] MEDS: FLUoxetine 20 MG CAPSULE PO SCH (09:46)
[2017-10-28] MEDS: PANTOPRAZOLE 40 MG TABLET PO SCH (09:46)
[2017-10-28] MEDS: PRAVASTATIN 20 MG TABLET PO SCH (21:18)
[2017-10-28] MEDS: AMIODARONE 200 MG TABLET PO SCH (21:19)
[2017-10-29] MEDS: ALBUTEROL/IPRATROPIUM 3 ML NEB RESP TX SCH ×4 (01:56→19:40)
[2017-10-29] MEDS: methylPREDNISolone SOD SUC 40 MG/1 ML VIAL IV SCH ×2 (02:35→10:02)
[2017-10-29 05:12] LABS: Basophils % 0.1 % (0.0-0.8); Hemoglobin 10.6 GM/DL (12.0-16.0); Immature Granulocytes % 1.5 %; Immature Granulocytes Absolute 0.28 #; Lymphocytes # 0.6 10*3/uL (1.4-4.0); Lymphocytes % 3.1 % (21.3-54.2); Mean Corpuscular HGB Conc 32.1 GM/DL (32-36); Mean Corpuscular Hemoglobin 31 PG (27-34); Mean Corpuscular Volume 96.2 FL (87-102); Mean Platelet Volume 10.5 FL (9.6-12.0); Monocytes % 5.4 % (1.7-12.7); Neutrophils # 16.5 10*3/uL (1.4-7.4); Neutrophils % 89.9 % (38.7-73.9); Platelet Count 298 T/CUMM (130-400); Red Blood Count 3.43 MC/CUMM (3.8-5.5); Red Cell Distribution Width 15.5 % (9.3-17.3); White Blood Count 18.4 T/CUMM (4-12)
[2017-10-29 05:38] LABS: Calcium 8.2 MG/DL (8.5-10.1); Osmolality,Calculated 300.7 MOS/KG (273-304); Potassium 4.3 MMOL/L (3.5-5.1)
[2017-10-29] MEDS: AMOXICILLIN 500 MG CAPSULE PO SCH ×3 (05:57→21:27)
[2017-10-29] MEDS: SODIUM CHLORIDE 0.9% 1,000 ML IV SCH (05:57)
[2017-10-29 05:59] LABS: Band Neutrophils 1 % (0-10); Burr Cells Slight; Giant Platelets Few; Hypochromasia 1+; Lymphocytes 2 % (20-55); Microcytosis Slight; Ovalocytes Slight; Platelet Estimate Adequate; Segmented Neutrophils 95 % (50-85); Total Cells Counted 100
[2017-10-29] MEDS: LISINOPRIL/HCTZ 20-25 MG TABLET PO SCH (09:53)
[2017-10-29] MEDS: FLUoxetine 20 MG CAPSULE PO SCH (09:54)
[2017-10-29] MEDS: MULTIVITAMIN (CENTRUM) TABLET PO SCH (09:54)
[2017-10-29] MEDS: PANTOPRAZOLE 40 MG TABLET PO SCH (09:54)
[2017-10-29] MEDS: CHOLECALCIFEROL 1,000 UNIT TABLET PO SCH (09:54)
[2017-10-29] MEDS: ENOXAPARIN 40 MG/0.4 ML SYRINGE SUBCUT SCH (09:54)
[2017-10-29] MEDS ORDERED: predniSONE 20 MG TABLET PO ONE (15:33)
[2017-10-29] MEDS ORDERED: MICONAZOLE 100 MG VAG SUPP 7/BOX VAG SCH (21:00)
[2017-10-29] MEDS: AMIODARONE 200 MG TABLET PO SCH (21:27)
[2017-10-29] MEDS: PRAVASTATIN 20 MG TABLET PO SCH (21:27)
[2017-10-30] MEDS: ALBUTEROL/IPRATROPIUM 3 ML NEB RESP TX SCH ×2 (00:33→06:56)
[2017-10-30] MEDS: SODIUM CHLORIDE 0.9% 1,000 ML IV SCH ×2 (01:18→04:15)
[2017-10-30 04:40] LABS: Basophils % 0.1 % (0.0-0.8); Hematocrit 31.3 VOL% (35.7-47.0); Hemoglobin 10.1 GM/DL (12.0-16.0); Immature Granulocytes % 3.1 %; Immature Granulocytes Absolute 0.69 #; Lymphocytes # 0.8 10*3/uL (1.4-4.0); Lymphocytes % 3.7 % (21.3-54.2); Mean Corpuscular HGB Conc 32.3 GM/DL (32-36); Mean Corpuscular Hemoglobin 31 PG (27-34); Mean Corpuscular Volume 95.4 FL (87-102); Mean Platelet Volume 10.5 FL (9.6-12.0); Monocytes # 0.9 10*3/uL (0.11-0.8); Monocytes % 4.2 % (1.7-12.7); Neutrophils # 19.8 10*3/uL (1.4-7.4); Neutrophils % 88.9 % (38.7-73.9); Platelet Count 337 T/CUMM (130-400); Red Blood Count 3.28 MC/CUMM (3.8-5.5); Red Cell Distribution Width 15.5 % (9.3-17.3); White Blood Count 22.3 T/CUMM (4-12)
[2017-10-30] MEDS: AMOXICILLIN 500 MG CAPSULE PO SCH (05:03)
[2017-10-30 05:08] LABS: Band Neutrophils 1 % (0-10); Calcium 8.4 MG/DL (8.5-10.1); Giant Platelets Few; Hypochromasia 1+; Lymphocytes 7 % (20-55); Microcytosis Slight; Osmolality,Calculated 297.8 MOS/KG (273-304); Platelet Estimate Adequate; Potassium 4.3 MMOL/L (3.5-5.1); Segmented Neutrophils 86 % (50-85); Total Cells Counted 100
[2017-10-30] MEDS: ENOXAPARIN 40 MG/0.4 ML SYRINGE SUBCUT SCH (08:33)
[2017-10-30] MEDS: MULTIVITAMIN (CENTRUM) TABLET PO SCH (08:33)
[2017-10-30] MEDS: FLUoxetine 20 MG CAPSULE PO SCH (08:33)
[2017-10-30] MEDS: CHOLECALCIFEROL 1,000 UNIT TABLET PO SCH (08:33)
[2017-10-30] MEDS: PANTOPRAZOLE 40 MG TABLET PO SCH (08:33)
[2017-10-30] MEDS ORDERED: ASPIRIN EC 81 MG TABLET PO SCH (09:00)
[2017-10-30] MEDS ORDERED: predniSONE 20 MG TABLET PO SCH (09:00)
[2017-10-30] MEDS ORDERED: LEVOFLOXACIN 500 MG TABLET PO SCH (09:00)
[2017-10-30 11:26] VITALS: BP 161/88
[2017-10-30] MEDS ORDERED: CIPROFLOXACIN 500 MG TABLET PO SCH (11:30)
== END 2017-10-30 15:00 | disposition home or self-care (01) | DRG 191 ==
LOC: EDBD → EDUNIT# → N.ED 20:10 → N.CC 22:26 → N.EDINP 10-28 02:07 → SUATTDRO 10-28 02:07 → N.CC 10-28 03:43 → N.3E 10-29 23:32
PROVIDERS: ADMIT Internal Medicine; ATTEND Family Medicine

== ENCOUNTER 2019-03-01 10:06 | Inpatient (IN) ==
[2019-03-01] MEDS ORDERED: NALOXONE 0.4 MG/ML VIAL IV STA (10:36)
[2019-03-01] MEDS ORDERED: ONDANSETRON 4 MG/2 ML VIAL IV STA (10:36)
[2019-03-01] MEDS ORDERED: SODIUM CHLORIDE 0.9% 1,000 ML IV STA (10:36)
[2019-03-01 10:44] LABS: Basophils # 0.1 10*3/uL (0.0-0.2); Basophils % 0.4 % (0.0-0.8); Eosinophils # 0.2 10*3/uL (0.0-0.87); Eosinophils % 1.8 % (0.00-10.9); Hematocrit 45.6 VOL% (35.7-47.0); Hemoglobin 14.8 GM/DL (12.0-16.0); Immature Granulocytes % 0.4 %; Immature Granulocytes Absolute 0.05 #; Lymphocytes # 2.6 10*3/uL (1.4-4.0); Lymphocytes % 22.8 % (21.3-54.2); Mean Corpuscular HGB Conc 32.5 GM/DL (32-36); Mean Corpuscular Volume 102.9 FL (87-102); Mean Platelet Volume 10.1 FL (9.6-12.0); Neutrophils % 66.6 % (38.7-73.9); Platelet Count 346 T/CUMM (130-400); Red Blood Count 4.43 MC/CUMM (3.8-5.5); Red Cell Distribution Width 14.2 % (9.3-17.3); White Blood Count 11.2 T/CUMM (4-12)
[2019-03-01 10:52] LABS: INR 0.9; Partial Thromboplastin Time 24.9 SECS (0-40)
[2019-03-01 10:56] LABS: Acetaminophen < 2.0 UG/ML (10-30); Salicylate 4.5 MG/DL (2.8-20)
[2019-03-01 10:58] LABS: Alanine Aminotransferase 30 U/L (13-56); Albumin 3.6 G/DL (3.4-5.0); Alkaline Phosphatase 126 U/L (45-117); Aspartate Amino Transferase 24 U/L (0-37); Blood Urea Nitrogen 22 MG/DL (7-18); Calcium 8.9 MG/DL (8.5-10.1); Glucose 153 MG/DL (74-106); Osmolality,Calculated 291.8 MOS/KG (273-304); Total Protein 7.3 G/DL (6.4-8.3); Troponin I < 0.015 NG/ML (0.00-0.045)
[2019-03-01 11:18] LABS: Apearance,Urine CLEAR (Clear); Bacteria,Urine Occasional /HPF (Few); Bilirubin,Urine Negative (Negative); Blood, Urine Negative (Negative); Glucose,Urine (UA) Negative (Negative); Hyaline Casts,Urine 1 /LPF (0-3); Ketones,Urine Negative (Negative); Nitrite,Urine Negative (Negative); Protein,Urine Negative; Urine Color Straw (Yellow); Urine Urobilinogen < 2.0 EU/DL (0.2-1.0); WBC,Urine 1 /HPF (0-6)
[2019-03-01 11:24] LABS: Barbiturates Screen,Urine Negative (Negative); Benzodiazepines Screen,Urine Negative (Negative); Cannabinoid Screen,Urine Negative (Negative); Opiate Screen,Urine Negative (Negative); Phencyclidine Screen,Urine Negative (Negative)
[2019-03-01 13:03] LABS: ABG Base Excess -0.7 MMOL/L (-2.5-2.5); ABG HCO3 23.7 MMOL/L (20-26); ABG PCO2 42.8 MM HG (35-48); ABG TCO2 21.4 MMOL/L (23-27); Allen Test Positive; Pt O2 Delivery Device Room Air
[2019-03-01] MEDS ORDERED: LACTULOSE 20 GM/30 ML UDCUP PO PRN (14:14)
[2019-03-01] MEDS ORDERED: ONDANSETRON 4 MG/2 ML VIAL IV PRN (14:14)
[2019-03-01] MEDS ORDERED: ACETAMINOPHEN 325 MG TABLET PO PRN (14:14)
[2019-03-01] MEDS ORDERED: diphenhydrAMINE 50 MG/1 ML VIAL IV ONE (14:49)
[2019-03-01] MEDS ORDERED: LORazepam 2 MG/1 ML VIAL IV ONE (14:51)
[2019-03-01] MEDS ORDERED: hydrALAZINE 20 MG/1 ML VIAL IV PRN (14:51)
[2019-03-01 14:54] LABS: Risk Ratio 3.66; Thyroid Stimulating Hormone 0.935 uIU/ml (0.358-3.74); VLDL CHOLESTEROL 36.6 MG/DL
[2019-03-01] MEDS ORDERED: HYDROmorphone 2 MG/1 ML VIAL IV ONE (15:03)
[2019-03-01] MEDS ORDERED: NON-FORMULARY MEDICATION (Albuterol Sulfate [Proair Hfa] 2 PUFF) INH PRN (15:12)
[2019-03-01] MEDS: ENOXAPARIN 40 MG/0.4 ML SYRINGE SUBCUT SCH (17:49)
[2019-03-01] MEDS ORDERED: ALBUTEROL 2.5 MG/3 ML NEB RESP TX PRN (19:00)
[2019-03-01] MEDS: SIMVASTATIN 10 MG TABLET PO SCH (20:40)
[2019-03-01] MEDS: METOPROLOL SUCCINATE XL 50 MG TABLET PO SCH (20:40)
[2019-03-01] MEDS: AMIODARONE 200 MG TABLET PO SCH (20:40)
[2019-03-02 05:37] LABS: Basophils % 0.3 % (0.0-0.8); Eosinophils # 0.2 10*3/uL (0.0-0.87); Eosinophils % 1.6 % (0.00-10.9); Hematocrit 41.8 VOL% (35.7-47.0); Hemoglobin 13.4 GM/DL (12.0-16.0); Immature Granulocytes % 0.3 %; Immature Granulocytes Absolute 0.03 #; Lymphocytes # 2.3 10*3/uL (1.4-4.0); Lymphocytes % 24.1 % (21.3-54.2); Mean Corpuscular HGB Conc 32.1 GM/DL (32-36); Mean Corpuscular Volume 104.2 FL (87-102); Mean Platelet Volume 10.2 FL (9.6-12.0); Monocytes % 8.6 % (1.7-12.7); Neutrophils % 65.1 % (38.7-73.9); Platelet Count 308 T/CUMM (130-400); Red Blood Count 4.01 MC/CUMM (3.8-5.5); Red Cell Distribution Width 14.1 % (9.3-17.3); White Blood Count 9.7 T/CUMM (4-12)
[2019-03-02 06:02] LABS: Osmolality,Calculated 295.4 MOS/KG (273-304)
[2019-03-02] MEDS: METOPROLOL SUCCINATE XL 50 MG TABLET PO SCH ×2 (08:10→20:32)
[2019-03-02] MEDS: ASPIRIN EC 81 MG TABLET PO SCH (08:10)
[2019-03-02] MEDS: amLODIPine 5 MG TABLET PO SCH (08:10)
[2019-03-02] MEDS: ENOXAPARIN 40 MG/0.4 ML SYRINGE SUBCUT SCH (13:53)
[2019-03-02] MEDS: SIMVASTATIN 10 MG TABLET PO SCH (20:32)
[2019-03-02] MEDS: AMIODARONE 200 MG TABLET PO SCH (20:32)
[2019-03-03 06:23] LABS: Basophils % 0.5 % (0.0-0.8); Eosinophils # 0.2 10*3/uL (0.0-0.87); Eosinophils % 2.6 % (0.00-10.9); Hematocrit 41.6 VOL% (35.7-47.0); Hemoglobin 13.7 GM/DL (12.0-16.0); Immature Granulocytes % 0.1 %; Immature Granulocytes Absolute 0.01 #; Lymphocytes # 3.2 10*3/uL (1.4-4.0); Lymphocytes % 39.2 % (21.3-54.2); Mean Corpuscular HGB Conc 32.9 GM/DL (32-36); Mean Platelet Volume 10.3 FL (9.6-12.0); Monocytes % 8.4 % (1.7-12.7); Neutrophils % 49.2 % (38.7-73.9); Platelet Count 277 T/CUMM (130-400); Red Blood Count 4.04 MC/CUMM (3.8-5.5); Red Cell Distribution Width 13.8 % (9.3-17.3); White Blood Count 8.2 T/CUMM (4-12)
[2019-03-03 06:51] LABS: Apearance,Urine CLEAR (Clear); Bacteria,Urine Occasional /HPF (Few); Bilirubin,Urine Negative (Negative); Blood, Urine Negative (Negative); Glucose,Urine (UA) Negative (Negative); Ketones,Urine Negative (Negative); Mucus,Urine Occasional /LPF (Occasional); Nitrite,Urine Negative (Negative); Protein,Urine Negative; RBC,Urine 3 /HPF (0-4); Squamous Epithelial Cell,Urine Occasional /HPF (0-10); Urine Color Yellow (Yellow); Urine Specific Gravity 1.012 (1.001-1.035); Urine Urobilinogen < 2.0 EU/DL (0.2-1.0); WBC,Urine 15 /HPF (0-6)
[2019-03-03 07:03] LABS: Barbiturates Screen,Urine Negative (Negative); Benzodiazepines Screen,Urine Negative (Negative); Cannabinoid Screen,Urine Negative (Negative); Opiate Screen,Urine Positive (Negative); Phencyclidine Screen,Urine Negative (Negative)
[2019-03-03 07:07] LABS: Albumin 3.3 G/DL (3.4-5.0); Bilirubin,Total 0.5 MG/DL (0.2-1.0); Calcium 9.1 MG/DL (8.5-10.1); Osmolality,Calculated 284.3 MOS/KG (273-304)
[2019-03-03] MEDS: ASPIRIN EC 81 MG TABLET PO SCH (08:50)
[2019-03-03] MEDS: METOPROLOL SUCCINATE XL 50 MG TABLET PO SCH (08:50)
[2019-03-03] MEDS: amLODIPine 5 MG TABLET PO SCH (08:50)
[2019-03-03 09:53] VITALS: BP 140/85
== END 2019-03-03 10:05 | disposition home or self-care (01) | DRG 463 ==
LOC: EDUNIT# → EDBD → N.ED 10:06 → SUATTDRO 14:14 → N.EDINP 14:14 → N.ICU 14:44
PROVIDERS: ADMIT Family Medicine; ATTEND Family Medicine